=== PATIENT | male | born 2000 | race Caucasian/White ===

== ENCOUNTER 2023-04-04 14:11 | Emergency (ER) | payer BC, MEDICAID ==
[~2023-04-04] VITALS: Ht 185.4 cm; Wt 100.6 kg
[2023-04-04 15:15] VITALS: BP 137/75
[2023-04-04] MEDS ORDERED: TETANUS-DIPTH-ACEL PERTUSSIS 0.5ML SYR Tdap IM ONE (15:30)
[2023-04-04] MEDS ORDERED: CEPH500T PO (15:31)
[2023-04-04] MEDS ORDERED: IBUP-1456 PO (15:31)
== END 2023-04-04 16:00 | disposition home or self-care (01) ==
LOC: ER 14:11
DX: S71.112A Laceration without foreign body, left thigh, initial encounter (principal); F17.210 Nicotine dependence, cigarettes, uncomplicated; W26.8XXA Contact with other sharp object(s), not elsewhere classified, initial encounter; Y93.89 Activity, other specified; Y92.89 Other specified places as the place of occurrence of the external cause; Y99.8 Other external cause status
CPT/HCPCS: 12002; 90471; 90715